=== PATIENT | female | born 1955 | race Caucasian/White ===

== ENCOUNTER 2018-06-11 11:19 | Outpatient (CLI) | payer BC | END 2018-06-11 11:20 | disposition home or self-care (01) | LOC: BICRAD 11:19 | PROVIDERS: ATTEND Neurological Surgery | DX: M43.06 Spondylolysis, lumbar region (principal); M51.37 Other intervertebral disc degeneration, lumbosacral region; M46.97 Unspecified inflammatory spondylopathy, lumbosacral region | CPT/HCPCS: 72110 ==

== ENCOUNTER 2021-12-11 11:01 | Outpatient (CLI) | payer MEDICARE, BC ==
[2021-12-12 00:07] LABS: SARS-CoV-2 PCR by NAA Not Detected (NotDetected)
== END 2021-12-11 11:02 | disposition home or self-care (01) ==
LOC: LABBT 11:01
PROVIDERS: ATTEND Family Medicine
DX: Z20.822 Contact with and (suspected) exposure to COVID-19 (principal)
CPT/HCPCS: U0003; U0005

== ENCOUNTER 2022-04-23 07:17 | Outpatient (CLI) | payer MEDICARE, BC | END 2022-04-23 07:18 | disposition home or self-care (01) | LOC: BICULT 07:17 | PROVIDERS: ATTEND Internal Medicine | DX: Z12.9 Encounter for screening for malignant neoplasm, site unspecified (principal) | CPT/HCPCS: 76700 ==

== ENCOUNTER 2022-05-31 07:42 | Outpatient (CLI) | payer MEDICARE, BC ==
[2022-07-01] MEDS ORDERED: Iopamidol 370 76% 100 ML VIAL ONE (13:50)
== END 2022-05-31 07:43 | disposition home or self-care (01) ==
LOC: BICCT 07:42
PROVIDERS: ATTEND Internal Medicine Gastroenterology
DX: K74.60 Unspecified cirrhosis of liver (principal); K75.81 Nonalcoholic steatohepatitis (NASH); R10.84 Generalized abdominal pain; K58.9 Irritable bowel syndrome, unspecified; R19.8 Other specified symptoms and signs involving the digestive system and abdomen; Z90.49 Acquired absence of other specified parts of digestive tract; Z90.710 Acquired absence of both cervix and uterus
CPT/HCPCS: 74177; 82565

== ENCOUNTER 2022-08-01 13:56 | Outpatient (CLI) | payer MEDICARE, BC | END 2022-08-01 13:57 | disposition home or self-care (01) | LOC: BICRAD 13:56 | PROVIDERS: ATTEND Internal Medicine Cardiovascular Disease | DX: R07.9 Chest pain, unspecified (principal); R06.00 Dyspnea, unspecified; R06.02 Shortness of breath | CPT/HCPCS: 71046 ==

== ENCOUNTER 2022-11-28 08:29 | Outpatient (CLI) | payer MEDICARE, BC | END 2022-11-28 08:30 | disposition home or self-care (01) | LOC: RAD 08:29 | PROVIDERS: ATTEND Internal Medicine Gastroenterology | DX: K75.81 Nonalcoholic steatohepatitis (NASH) (principal); I25.10 Atherosclerotic heart disease of native coronary artery without angina pectoris; K21.9 Gastro-esophageal reflux disease without esophagitis; R10.13 Epigastric pain; K46.9 Unspecified abdominal hernia without obstruction or gangrene | CPT/HCPCS: 74246 ==

== ENCOUNTER 2023-06-05 07:48 | Outpatient (CLI) | payer MEDICARE, BC | END 2023-06-05 07:49 | disposition home or self-care (01) | LOC: BICCT 07:48 | PROVIDERS: ATTEND Internal Medicine Gastroenterology | DX: K74.60 Unspecified cirrhosis of liver (principal); R11.0 Nausea; R10.31 Right lower quadrant pain; G89.29 Other chronic pain; I25.10 Atherosclerotic heart disease of native coronary artery without angina pectoris; E11.9 Type 2 diabetes mellitus without complications | CPT/HCPCS: 74177; 82565 ==

== ENCOUNTER 2023-07-16 15:06 | Observation (INO) | payer MEDICARE, BC ==
[~2023-07-16 15:06] MED LIST: Iopamidol-370 76% 500 ML MDV (1 ML CHARGE) ONE
[2023-07-16 15:36] LABS: #Basophils 0.1 thou/uL (0.0-0.2); #Eosinphils 0.3 thou/uL (0.0-0.7); #Monocytes 0.8 thou/uL (0.11-0.59); #Neutrophils 4.4 thou/uL (1.40-6.50); %Basophils 0.6 % (0.0-1.0); %Eosinophils 3.6 % (0.0-10.0); %Lymphocytes 30.3 % (21.0-51.0); %Monocytes 10.1 % (0.0-10.0); %Neutrophils 55.2 % (42.0-75.0); Hemoglobin 15.5 g/dL (12.0-16.0); Mean Corpuscular Hemoglobin 31.1 pg (27.0-31.0); Mean Corpuscular Volume 86.2 fl (78.0-98.0); Mean Platelet Volume 11.7 fL (7.4-10.4); Platelet Count 141 10x3/uL (130-400); RBC Distribution Width 13.1 % (11.5-14.5); Red Blood Cell (RBC) Count 4.99 mill/uL (4.20-5.40); White Blood Cell (WBC) Count 8.1 10x3/uL (4.8-10.8)
[2023-07-16] MEDS ORDERED: Ondansetron PF 4 MG/2 ML Vial ONE ×2 (15:39→19:23)
[2023-07-16] MEDS ORDERED: Morphine 4 MG/ML VIAL ONE ×2 (15:39→19:23)
[2023-07-16 16:09] LABS: ALT (SGPT) 42 U/L (8-55); AST (SGOT) 41 U/L (5-34); Albumin 4.7 g/dL (3.4-4.8); Alkaline Phosphatase 104 U/L (40-110); Anion Gap 13 mmol/L (10-20); BUN (Urea Nitrogen) 7 mg/dL (9.8-20.1); Bilirubin, Total 1.1 mg/dL (0.2-1.2); Calc. Creatinine Clearance 0 mL/min (70-130); Calcium 10.6 mg/dL (7.8-10.44); Carbon Dioxide 27 mmol/L (23-31); Chloride 103 mmol/L (98-107); Estimated GFR 77; Globulin 3.2 g/dL (2.4-3.5); Glucose 198 mg/dL (80-115); Potassium 3.1 mmol/L (3.5-5.1); Protein, Total 7.9 g/dL (5.8-8.1); Sodium 140 mmol/L (136-145)
[2023-07-16] MEDS ORDERED: Nitroglycerin 2% Ointment 1 INCH/1 GM Packet ONE (16:16)
[2023-07-16] MEDS ORDERED: Aspirin Chewable 81 MG TAB ONE (16:16)
[2023-07-16 16:22] LABS: Lipase 93 U/L (8-78)
[2023-07-16 17:09] LABS: Bacteria/HPF None Seen HPF (None Seen); Bilirubin Negative (Negative); Blood, Urine Negative (Negative); CAUTI Indications for Culture Alt mental st,lethar; Clarity Clear (Clear); Glucose, Urine (Dipstick) 200 mg/dL (Negative); Ketone, Urine Negative (Negative); Leukocyte Negative Leu/uL (Negative); Nitrite Negative (Negative); Protein, Urine (Dipstick) 20 mg/dL (Neg-Trace); RBC/HPF 0-3 HPF (0-3); Specific Gravity, Urine 1.011 (1.002-1.036); Urobilinogen Normal mg/dL (Less than 2); pH, Urine 7.5 (5.0-9.0)
[2023-07-16 17:10] LABS: Urine Culture Reflex No No
[2023-07-16 19:19] LABS: Lactic Acid 2.4 mmol/L (0.5-2.2)
[2023-07-16] MEDS ORDERED: Ondansetron ODT 4 MG TAB SL PRN (19:45)
[2023-07-16] MEDS ORDERED: Ondansetron PF 4 MG/2 ML Vial IVP PRN ×2 (19:45→20:39)
[2023-07-16] MEDS ORDERED: Acetaminophen 325 MG TAB PO PRN (19:45)
[2023-07-16 19:51] LABS: Magnesium 1.4 mg/dL (1.6-2.6)
[2023-07-16] MEDS ORDERED: Ibuprofen 200 MG TAB PO PRN (20:32)
[2023-07-16] MEDS ORDERED: Ondansetron ODT 8 MG TAB SL PRN (20:41)
[2023-07-16 20:43] LABS: Troponin I Less than 0.010 ng/mL (< 0.028)
[2023-07-16] MEDS ORDERED: hydrALAZINE 20 MG/ML VIAL SLOW IVP PRN (20:46)
[2023-07-16] MEDS ORDERED: Potassium Chloride 20 MEQ TAB PO SCH (21:00)
[2023-07-16] MEDS ORDERED: Lidocaine 4% Patch TD PRN (21:00)
[2023-07-16] MEDS ORDERED: Losartan 25 MG TAB PO SCH (21:00)
[2023-07-16 21:25] VITALS: BMI 31.1
[2023-07-16] MEDS: Famotidine 20 MG TAB PO SCH (21:44)
[2023-07-16] MEDS: Acetaminophen 325 MG TAB PO PRN (21:45)
[2023-07-16 23:17] LABS: Hemoglobin A1c 7.8 % (4.0-6.0)
[2023-07-16 23:22] LABS: Phosphorus 3.9 mg/dL (2.3-4.7)
[2023-07-16 23:31] LABS: Cholesterol 222 mg/dl (< 200 Desired); HDL Cholesterol 44 mg/dL (>60 Neg Risk); LDL Cholesterol, Calculated 143 mg/dL; Magnesium 1.3 mg/dL (1.6-2.6); Triglycerides 176 mg/dL (Less than 150)
[2023-07-16 23:37] LABS: Troponin I Less than 0.010 ng/mL (< 0.028)
[2023-07-17] MEDS ORDERED: Melatonin 3 MG TAB PO PRN (00:10)
[2023-07-17] MEDS: Acetaminophen 325 MG TAB PO PRN ×2 (03:08→14:09)
[2023-07-17 04:52] LABS: #Basophils 0.1 thou/uL (0.0-0.2); #Eosinphils 0.5 thou/uL (0.0-0.7); #Monocytes 0.9 thou/uL (0.11-0.59); #Neutrophils 4.4 thou/uL (1.40-6.50); %Basophils 0.6 % (0.0-1.0); %Eosinophils 5.8 % (0.0-10.0); %Lymphocytes 25.6 % (21.0-51.0); %Monocytes 11.4 % (0.0-10.0); %Neutrophils 56.3 % (42.0-75.0); Hematocrit 36.7 % (36.0-47.0); Hemoglobin 12.7 g/dL (12.0-16.0); Mean Corpuscular HGB CONC 34.6 g/dL (32.0-36.0); Mean Corpuscular Hemoglobin 30.6 pg (27.0-31.0); Mean Corpuscular Volume 88.4 fl (78.0-98.0); Mean Platelet Volume 12.4 fL (7.4-10.4); Platelet Count 124 10x3/uL (130-400); RBC Distribution Width 13.3 % (11.5-14.5); Red Blood Cell (RBC) Count 4.15 mill/uL (4.20-5.40); White Blood Cell (WBC) Count 7.9 10x3/uL (4.8-10.8)
[2023-07-17 05:19] LABS: ALT (SGPT) 36 U/L (8-55); AST (SGOT) 35 U/L (5-34); Albumin 3.9 g/dL (3.4-4.8); Alkaline Phosphatase 82 U/L (40-110); Anion Gap 9 mmol/L (10-20); BUN (Urea Nitrogen) 9 mg/dL (9.8-20.1); Bilirubin, Total 1.2 mg/dL (0.2-1.2); Calc. Creatinine Clearance 72 mL/min (70-130); Calcium 9.5 mg/dL (7.8-10.44); Carbon Dioxide 27 mmol/L (23-31); Chloride 104 mmol/L (98-107); Estimated GFR 80; Globulin 2.7 g/dL (2.4-3.5); Glucose 173 mg/dL (80-115); Potassium 3.4 mmol/L (3.5-5.1); Protein, Total 6.6 g/dL (5.8-8.1); Sodium 137 mmol/L (136-145)
[2023-07-17] MEDS ORDERED: Magnesium 2 GM/50 ML(in water) 2 GM in Premix Bag 1 BAG IVPB SCH (06:00)
[2023-07-17] MEDS ORDERED: Potassium Chloride 20 MEQ TAB PO SCH (08:00)
[2023-07-17] MEDS ORDERED: Spironolactone 25 MG TAB PO SCH (08:00)
[2023-07-17] MEDS ORDERED: Glucagon 1 MG/ML KIT IM PRN (08:26)
[2023-07-17] MEDS ORDERED: HumaLOG 300 UNITS/3 ML VIAL SC PRN ×2 (08:26)
[2023-07-17] MEDS ORDERED: Dextrose 5% in Water 1,000 ML IV PRN (08:26)
[2023-07-17] MEDS ORDERED: Dextrose 50% Abboject 50 ML SYRINGE SLOW IVP PRN (08:26)
[2023-07-17 08:57] LABS: #Basophils 0.1 thou/uL (0.0-0.2); #Eosinphils 0.4 thou/uL (0.0-0.7); #Monocytes 0.7 thou/uL (0.11-0.59); #Neutrophils 3.7 thou/uL (1.40-6.50); %Basophils 0.8 % (0.0-1.0); %Eosinophils 6.5 % (0.0-10.0); %Lymphocytes 25.5 % (21.0-51.0); Hematocrit 38.9 % (36.0-47.0); Hemoglobin 13.7 g/dL (12.0-16.0); Mean Corpuscular HGB CONC 35.2 g/dL (32.0-36.0); Mean Corpuscular Hemoglobin 31.1 pg (27.0-31.0); Mean Corpuscular Volume 88.4 fl (78.0-98.0); Platelet Count 113 10x3/uL (130-400); RBC Distribution Width 13.2 % (11.5-14.5); White Blood Cell (WBC) Count 6.6 10x3/uL (4.8-10.8)
[2023-07-17] MEDS ORDERED: Losartan 25 MG TAB PO SCH (09:00)
[2023-07-17] MEDS ORDERED: Aspirin 81 mg Enteric Coated Tablet PO SCH (09:00)
[2023-07-17] MEDS ORDERED: Transdermal Patch Removal TOP SCH (09:00)
[2023-07-17 09:16] LABS: ALT (SGPT) 40 U/L (8-55); AST (SGOT) 41 U/L (5-34); Albumin 4.1 g/dL (3.4-4.8); Alkaline Phosphatase 89 U/L (40-110); Anion Gap 14 mmol/L (10-20); BUN (Urea Nitrogen) 8 mg/dL (9.8-20.1); Bilirubin, Total 1.5 mg/dL (0.2-1.2); Calc. Creatinine Clearance 73 mL/min (70-130); Calcium 9.4 mg/dL (7.8-10.44); Carbon Dioxide 24 mmol/L (23-31); Chloride 106 mmol/L (98-107); Estimated GFR 81; Glucose 178 mg/dL (80-115); Magnesium 1.9 mg/dL (1.6-2.6); Phosphorus 3.3 mg/dL (2.3-4.7); Potassium 3.7 mmol/L (3.5-5.1); Protein, Total 7.1 g/dL (5.8-8.1); Sodium 140 mmol/L (136-145)
[2023-07-17] MEDS ORDERED: Regadenoson 0.4 MG/5 ML SYRINGE ONE (11:49)
[2023-07-17] MEDS: Famotidine 20 MG TAB PO SCH (14:12)
[2023-07-17 15:24] VITALS: BP 163/70; TEMP 98
[2023-07-17] MEDS ORDERED: Atorvastatin Calcium 40 MG TAB PO SCH (21:00)
== END 2023-07-17 16:18 | disposition home or self-care (01) ==
LOC: ERS 15:06 → 2SW 19:29
PROVIDERS: ADMIT Student in an Organized Health Care Education/Training Program; ATTEND Student in an Organized Health Care Education/Training Program
DX: I16.0 Hypertensive urgency (principal); M94.0 Chondrocostal junction syndrome [Tietze]; I08.1 Rheumatic disorders of both mitral and tricuspid valves; E87.6 Hypokalemia; R07.89 Other chest pain; E83.42 Hypomagnesemia; E78.5 Hyperlipidemia, unspecified; K21.9 Gastro-esophageal reflux disease without esophagitis; K74.60 Unspecified cirrhosis of liver; G47.30 Sleep apnea, unspecified; E11.9 Type 2 diabetes mellitus without complications; K44.9 Diaphragmatic hernia without obstruction or gangrene; M19.90 Unspecified osteoarthritis, unspecified site; Z88.5 Allergy status to narcotic agent; Z88.6 Allergy status to analgesic agent; Z79.82 Long term (current) use of aspirin; Z79.899 Other long term (current) drug therapy; Z90.49 Acquired absence of other specified parts of digestive tract; Z90.710 Acquired absence of both cervix and uterus
CPT/HCPCS: 71045; 74177; 78452; 80053 ×2; 80061; 81001; 82962 ×2; 83036; 83605; 83690; 83735 ×2; 83880; 84100 ×2; 84484 ×2; 85025 ×2; 93005; 93017; 93306; A9500; G0378 ×3; J2785; 36415; 36416; 84443; 93010; J2270; J2405; J3475; Q9967

== ENCOUNTER 2023-11-21 15:07 | Emergency (ER) | payer MEDICARE | END 2023-11-21 16:23 | disposition left against medical advice (07) | LOC: ERS 15:07 | DX: Z53.21 Procedure and treatment not carried out due to patient leaving prior to being seen by health care provider (principal) ==

== ENCOUNTER 2024-07-28 07:40 | Outpatient (CLI) | payer MEDICARE ==
[2024-07-28] MEDS ORDERED: Iopamidol 370 76% 100 ML VIAL ONE (09:18)
== END 2024-07-28 07:41 | disposition home or self-care (01) ==
LOC: BICCT 07:40
PROVIDERS: ATTEND Physician Assistant Medical
DX: K21.9 Gastro-esophageal reflux disease without esophagitis (principal); K74.60 Unspecified cirrhosis of liver; E87.6 Hypokalemia; I25.10 Atherosclerotic heart disease of native coronary artery without angina pectoris; E61.2 Magnesium deficiency; R16.1 Splenomegaly, not elsewhere classified; K65.4 Sclerosing mesenteritis; Z86.0100 Personal history of colon polyps, unspecified
CPT/HCPCS: 36415; 74170; 82565; Q9967

== ENCOUNTER 2024-11-03 13:08 | Outpatient (CLI) | payer MEDICARE | END 2024-11-03 13:09 | disposition home or self-care (01) | LOC: DTY/OP 13:08 | PROVIDERS: ATTEND Internal Medicine Gastroenterology | DX: E11.9 Type 2 diabetes mellitus without complications (principal); K74.60 Unspecified cirrhosis of liver; K76.0 Fatty (change of) liver, not elsewhere classified | CPT/HCPCS: 97802 ==